=== PATIENT | female | born 1995 | race Caucasian/White ===

== ENCOUNTER 2019-10-05 19:28 | Emergency (ER) | payer OTHER, MEDICAID ==
[~2019-10-05] VITALS: Ht 162.6 cm; Wt 59.0 kg
[2019-10-05 19:50] LABS: URINE BILIRUBIN NEGATIVE (Negative); URINE BLOOD 3+ (Negative); URINE CLARITY CLEAR; URINE COLOR YELLOW; URINE GLUCOSE-RANDOM NEGATIVE (Negative); URINE KETONES NEGATIVE (Negative); URINE LEUKOCYTES-REFLEX NEGATIVE (Negative); URINE NITRITE-REFLEX NEGATIVE (Negative); URINE PROTEIN NEGATIVE (Negative); URINE SPECIFIC GRAVITY >= 1.030 (1.005-1.030); URINE UROBILINOGEN 0.2 E.U./dl (0.2-1.0)
[2019-10-05 19:57] LABS: ABSOLUTE BASOPHILS 0.1 thou/uL (0.0-0.2); ABSOLUTE EOSINOPHILS 0.2 thou/uL (0.0-0.7); ABSOLUTE LYMPHOCYTES 2.4 thou/uL (0.8-5.3); ABSOLUTE MONOCYTES 0.4 thou/uL (0.0-1.2); ABSOLUTE NEUTROPHILS 3.2 thou/uL (1.6-8.1); BASOPHILS 0.9 %; HEMATOCRIT 39.8 % (37.0-47.0); HEMOGLOBIN 13.7 gm/dL (12.0-15.0); LYMPHOCYTES 37.9 %; MCH 31.1 pg (26.0-34.0); MCHC 34.3 g/dL (28.0-37.0); MCV 90.6 fL (80.0-100.0); MONOCYTES 6.5 %; MPV 9.2 fl. (7.2-11.1); NUCLEATED RBCS 0 /100WBC; PLATELET COUNT* 319 thou/uL (150-400); POLYS 51.7 %; RDW-CV 13.3 % (10.5-14.5); WBC 6.2 thou/uL (4.0-11.0)
[2019-10-05 19:58] LABS: SQUAMOUS >10 Many /LPF (0-3)
[2019-10-05 19:59] LABS: BACTERIA-REFLEX 1-9 Few /HPF (None Seen); URINE RBC 3-10 Few /HPF (0-2); URINE WBC-REFLEX 0-5 Rare /HPF (0-5)
[2019-10-05 20:00] LABS: CASTS None Seen /LPF (None Seen); CRYSTALS None Seen /LPF (None Seen); MUCUS 0-3 Light strn/LPF (None Seen)
[2019-10-05 20:43] VITALS: BP 130/80
== END 2019-10-05 20:44 | disposition home or self-care (01) ==
LOC: M.ERS 19:28
PROVIDERS: Nurse Practitioner Family
DX: N93.9 Abnormal uterine and vaginal bleeding, unspecified (principal); F17.210 Nicotine dependence, cigarettes, uncomplicated

== ENCOUNTER 2019-10-10 13:00 | Emergency (ER) | payer OTHER, MEDICAID ==
[~2019-10-10] VITALS: Ht 162.6 cm; Wt 61.2 kg
[2019-10-10 13:15] VITALS: BP 150/91
[2019-10-10] MEDS ORDERED: AMOXICILLIN500 M1 PO (13:58)
== END 2019-10-10 14:06 | disposition home or self-care (01) ==
LOC: M.ERS 13:00
DX: J02.9 Acute pharyngitis, unspecified (principal)

== ENCOUNTER 2020-02-15 23:53 | Emergency (ER) | payer OTHER, MEDICAID ==
[~2020-02-15] VITALS: Ht 162.6 cm; Wt 63.5 kg
[~2020-02-15 23:53] MED LIST: AMOXICILLIN500 M1 PO
[2020-02-16 00:34] LABS: INFLUENZA A ANTIGEN Negative (Negative); INFLUENZA B ANTIGEN Negative (Negative)
[2020-02-16] MEDS ORDERED: PROAIR HFA8.5 GM INH (01:11)
[2020-02-16] MEDS ORDERED: AEROCHAMBER MV1 EACH INH (01:11)
[2020-02-16 01:39] VITALS: BP 148/96
== END 2020-02-16 01:39 | disposition home or self-care (01) ==
LOC: M.ERS 23:53
PROVIDERS: Emergency Medicine
DX: J06.9 Acute upper respiratory infection, unspecified (principal)

== ENCOUNTER 2020-03-04 01:36 | Emergency (ER) | payer OTHER, MEDICAID ==
[~2020-03-04] VITALS: Ht 162.6 cm; Wt 63.5 kg
[~2020-03-04 01:36] MED LIST changes: +AEROCHAMBER MV1 EACH INH; +PROAIR HFA8.5 GM INH
[2020-03-04 02:14] VITALS: BP 138/97
== END 2020-03-04 02:16 | disposition home or self-care (01) ==
LOC: M.ERS 01:36
DX: N64.4 Mastodynia (principal); F17.210 Nicotine dependence, cigarettes, uncomplicated

== ENCOUNTER 2020-04-01 00:45 | Emergency (ER) | payer OTHER, MEDICAID ==
[~2020-04-01] VITALS: Ht 162.6 cm; Wt 59.0 kg
[2020-04-01] MEDS ORDERED: IBUPROFEN 600600 M1 PO (00:53)
[2020-04-01] MEDS ORDERED: AUGMENTIN 500-1 EACH PO (00:53)
[2020-04-01] MEDS ORDERED: HYDROCODON-ACE1 EAC7 PO (00:53)
[2020-04-01 01:12] VITALS: BP 132/70
[2020-04-02] MEDS ORDERED: ZOFRAN ODT4 MG PO (04:44)
[2020-04-02] MEDS ORDERED: AUGMENTIN 875-1 EACH PO (04:44)
[2020-04-02] MEDS ORDERED: HYDROCODON-ACE1 EAC7 PO (04:44)
[2020-04-02] MEDS ORDERED: CYCLOBENZAPRINE5 MG PO (05:36)
[2020-04-02] MEDS ORDERED: TORADOL 10 MG T10 MG PO (05:36)
== END 2020-04-01 01:13 | disposition home or self-care (01) ==
LOC: M.ERS 00:45
DX: M27.62 Post-osseointegration biological failure of dental implant (principal); K02.9 Dental caries, unspecified; R59.1 Generalized enlarged lymph nodes

== ENCOUNTER 2020-04-02 04:27 | Emergency (ER) | payer OTHER, MEDICAID ==
[~2020-04-02] VITALS: Ht 165.1 cm; Wt 61.2 kg
[~2020-04-02 04:27] MED LIST changes: +AUGMENTIN 500-1 EACH PO; +HYDROCODON-ACE1 EAC7 PO; +IBUPROFEN 600600 M1 PO
[2020-04-02] MEDS ORDERED: ZOFRAN ODT4 MG PO (04:44)
[2020-04-02] MEDS ORDERED: HYDROCODON-ACE1 EAC7 PO (04:44)
[2020-04-02] MEDS ORDERED: AUGMENTIN 875-1 EACH PO (04:44)
[2020-04-02 05:13] LABS: URINE BILIRUBIN NEGATIVE (Negative); URINE BLOOD 3+ (Negative); URINE COLOR YELLOW; URINE GLUCOSE-RANDOM NEGATIVE (Negative); URINE KETONES NEGATIVE (Negative); URINE LEUKOCYTES-REFLEX NEGATIVE (Negative); URINE NITRITE-REFLEX NEGATIVE (Negative); URINE PROTEIN NEGATIVE (Negative); URINE SPECIFIC GRAVITY >= 1.030 (1.005-1.030); URINE UROBILINOGEN 0.2 E.U./dl (0.2-1.0)
[2020-04-02 05:15] LABS: URINE CLARITY SL HAZY
[2020-04-02 05:21] LABS: BACTERIA-REFLEX 1-9 Few /HPF (None Seen); SQUAMOUS 0-3 Few /LPF (0-3); URINE RBC 3-10 Few /HPF (0-2); URINE WBC-REFLEX 0-5 Rare /HPF (0-5)
[2020-04-02 05:22] LABS: AMP/METHAMP POSITIVE (Negative); BARBITURATES Negative (Negative); BENZODIAZEPINES Negative (Negative); CASTS None Seen /LPF (None Seen); COCAINE Negative (Negative); CRYSTALS None Seen /LPF (None Seen); METHADONE Negative (Negative); MUCUS 4-6 Moderate strn/LPF (None Seen); OPIATES POSITIVE (Negative); PCP Negative (Negative); THC Negative (Negative)
[2020-04-02] MEDS ORDERED: CYCLOBENZAPRINE5 MG PO (05:36)
[2020-04-02] MEDS ORDERED: TORADOL 10 MG T10 MG PO (05:36)
[2020-04-02 05:56] VITALS: BP 128/84
== END 2020-04-02 05:58 | disposition home or self-care (01) ==
LOC: M.ERS 04:27
PROVIDERS: Personal Emergency Response Attendant
DX: M54.5 Low back pain (principal); Z79.899 Other long term (current) drug therapy

== ENCOUNTER 2020-07-09 23:50 | Emergency (ER) | payer OTHER, MEDICAID ==
[~2020-07-09] VITALS: Ht 162.6 cm; Wt 65.8 kg
[~2020-07-09 23:50] MED LIST changes: +AUGMENTIN 875-1 EACH PO; +CYCLOBENZAPRINE5 MG PO; +TORADOL 10 MG T10 MG PO; +ZOFRAN ODT4 MG PO
[2020-07-10 00:17] LABS: URINE BILIRUBIN NEGATIVE (Negative); URINE BLOOD NEGATIVE (Negative); URINE CLARITY CLEAR; URINE COLOR YELLOW; URINE GLUCOSE-RANDOM NEGATIVE (Negative); URINE KETONES NEGATIVE (Negative); URINE LEUKOCYTES-REFLEX NEGATIVE (Negative); URINE NITRITE-REFLEX NEGATIVE (Negative); URINE PROTEIN NEGATIVE (Negative); URINE SPECIFIC GRAVITY >= 1.030 (1.005-1.030); URINE UROBILINOGEN 0.2 E.U./dl (0.2-1.0)
[2020-07-10 00:28] LABS: ABSOLUTE BASOPHILS 0.1 thou/uL (0.0-0.2); ABSOLUTE EOSINOPHILS 0.2 thou/uL (0.0-0.7); ABSOLUTE LYMPHOCYTES 2.8 thou/uL (0.8-5.3); ABSOLUTE MONOCYTES 0.4 thou/uL (0.0-1.2); ABSOLUTE NEUTROPHILS 3.4 thou/uL (1.6-8.1); BASOPHILS 1.1 %; EOSINOPHILS 3.3 %; HEMATOCRIT 38.5 % (37.0-47.0); HEMOGLOBIN 13.3 gm/dL (12.0-15.0); LYMPHOCYTES 40.6 %; MCH 31.7 pg (26.0-34.0); MCHC 34.5 g/dL (28.0-37.0); MONOCYTES 5.2 %; MPV 9.1 fl. (7.2-11.1); NUCLEATED RBCS 0 /100WBC; PLATELET COUNT* 320 thou/uL (150-400); POLYS 49.8 %; RBC 4.19 mil/uL (4.20-5.00); RDW-CV 13.3 % (10.5-14.5); WBC 6.8 thou/uL (4.0-11.0)
[2020-07-10 00:32] LABS: CALCIUM 8.3 mg/dL (8.5-10.1); POTASSIUM 3.7 mmol/L (3.5-5.1)
[2020-07-10 00:37] LABS: TOTAL BILIRUBIN 0.6 mg/dL (<0.1-1.0); TOTAL PROTEIN 7.2 g/dL (6.4-8.2)
[2020-07-10] MEDS ORDERED: FLAGYL500 M1 PO (02:22)
[2020-07-10 02:32] VITALS: BP 149/90
== END 2020-07-10 02:33 | disposition home or self-care (01) ==
LOC: M.ERS 23:50
PROVIDERS: Emergency Medicine
DX: K50.00 Crohn's disease of small intestine without complications (principal); F17.210 Nicotine dependence, cigarettes, uncomplicated

== ENCOUNTER 2020-07-10 23:24 | Emergency (ER) | payer OTHER, MEDICAID ==
[~2020-07-10] VITALS: Ht 162.6 cm; Wt 65.8 kg
[~2020-07-10 23:24] MED LIST changes: +FLAGYL500 M1 PO
[2020-07-11 00:26] LABS: CREATININE 0.8 mg/dL (0.6-1.3); POTASSIUM 3.6 mmol/L (3.5-5.1)
[2020-07-11 01:03] VITALS: BP 137/92
== END 2020-07-11 01:03 | disposition home or self-care (01) ==
LOC: M.ERS 23:24
PROVIDERS: Emergency Medicine Emergency Medical Services
DX: R20.2 Paresthesia of skin (principal); J34.89 Other specified disorders of nose and nasal sinuses

== ENCOUNTER 2020-10-12 13:54 | Emergency (ER) | payer OTHER, MEDICAID ==
[~2020-10-12] VITALS: Ht 162.6 cm; Wt 65.8 kg
[2020-10-12 15:12] VITALS: BP 135/92
== END 2020-10-12 15:13 | disposition home or self-care (01) ==
LOC: M.ERS 13:54
DX: J98.8 Other specified respiratory disorders (principal); Z20.828 Contact with and (suspected) exposure to other viral communicable diseases

== ENCOUNTER 2020-10-24 11:47 | Emergency (ER) | payer OTHER, MEDICAID ==
[~2020-10-24] VITALS: Ht 162.6 cm; Wt 65.8 kg
[2020-10-24 12:29] LABS: URINE BLOOD 3+ (Negative); URINE CLARITY CLEAR; URINE COLOR YELLOW; URINE GLUCOSE-RANDOM TRACE (Negative); URINE KETONES NEGATIVE (Negative); URINE LEUKOCYTES-REFLEX NEGATIVE (Negative); URINE NITRITE-REFLEX NEGATIVE (Negative); URINE PROTEIN 2+ (Negative); URINE SPECIFIC GRAVITY >= 1.030 (1.005-1.030); URINE UROBILINOGEN 0.2 E.U./dl (0.2-1.0)
[2020-10-24 12:41] LABS: ABSOLUTE EOSINOPHILS 0.4 thou/uL (0.0-0.7); ABSOLUTE MONOCYTES 0.5 thou/uL (0.0-1.2); ABSOLUTE NEUTROPHILS 6.5 thou/uL (1.6-8.1); BASOPHILS 0.5 %; EOSINOPHILS 3.8 %; HEMATOCRIT 40.5 % (37.0-47.0); HEMOGLOBIN 13.5 gm/dL (12.0-15.0); LYMPHOCYTES 20.9 %; MCH 30.8 pg (26.0-34.0); MCHC 33.4 g/dL (28.0-37.0); MCV 92.2 fL (80.0-100.0); MONOCYTES 5.2 %; MPV 8.9 fl. (7.2-11.1); NUCLEATED RBCS 0 /100WBC; PLATELET COUNT* 239 thou/uL (150-400); POLYS 69.6 %; RBC 4.39 mil/uL (4.20-5.00); RDW-CV 12.9 % (10.5-14.5); WBC 9.4 thou/uL (4.0-11.0)
[2020-10-24 12:42] LABS: BACTERIA-REFLEX 1-9 Few /HPF (None Seen); CASTS None Seen /LPF (None Seen); CRYSTALS None Seen /LPF (None Seen); ICTOTEST (BILI CONFIRMATORY) Negative (Negative); SQUAMOUS 4-10 Moderate /LPF (0-3); URINE BILIRUBIN 2+ (Negative); URINE RBC 3-10 Few /HPF (0-2); URINE WBC-REFLEX 0-5 Rare /HPF (0-5)
[2020-10-24 12:56] LABS: CALCIUM 7.8 mg/dL (8.5-10.1); CREATININE 0.8 mg/dL (0.6-1.3); POTASSIUM 3.6 mmol/L (3.5-5.1)
[2020-10-24 13:00] LABS: ALBUMIN 3.4 g/dL (3.4-5.0); TOTAL BILIRUBIN 0.9 mg/dL (<0.1-1.0); TOTAL PROTEIN 6.8 g/dL (6.4-8.2)
[2020-10-24 13:59] VITALS: BP 140/68
== END 2020-10-24 13:59 | disposition home or self-care (01) ==
LOC: M.ERS 11:47
PROVIDERS: Physician Assistant
DX: N94.6 Dysmenorrhea, unspecified (principal); R10.32 Left lower quadrant pain

== ENCOUNTER 2020-11-03 18:53 | Emergency (ER) | payer OTHER, MEDICAID ==
[~2020-11-03] VITALS: Ht 162.6 cm; Wt 65.8 kg
[2020-11-03 20:22] LABS: URINE BILIRUBIN NEGATIVE (Negative); URINE BLOOD NEGATIVE (Negative); URINE CLARITY CLEAR; URINE COLOR YELLOW; URINE GLUCOSE-RANDOM NEGATIVE (Negative); URINE KETONES NEGATIVE (Negative); URINE LEUKOCYTES-REFLEX NEGATIVE (Negative); URINE NITRITE-REFLEX NEGATIVE (Negative); URINE PROTEIN NEGATIVE (Negative); URINE UROBILINOGEN 0.2 E.U./dl (0.2-1.0)
[2020-11-03 20:28] LABS: AMP/METHAMP POSITIVE (Negative); BARBITURATES Negative (Negative); BENZODIAZEPINES Negative (Negative); COCAINE Negative (Negative); METHADONE Negative (Negative); OPIATES Negative (Negative); PCP Negative (Negative); THC Negative (Negative)
[2020-11-03 20:43] LABS: HEMATOCRIT 41.9 % (37.0-47.0); MCH 30.8 pg (26.0-34.0); MCHC 33.5 g/dL (28.0-37.0); MCV 91.9 fL (80.0-100.0); MPV 8.8 fl. (7.2-11.1); RBC 4.56 mil/uL (4.20-5.00); RDW-CV 12.7 % (10.5-14.5); WBC 6.7 thou/uL (4.0-11.0)
[2020-11-03 21:03] LABS: CALCIUM 8.9 mg/dL (8.5-10.1); CREATININE 0.8 mg/dL (0.6-1.3)
[2020-11-03 21:07] LABS: ALBUMIN 3.9 g/dL (3.4-5.0); TOTAL BILIRUBIN 0.7 mg/dL (<0.1-1.0); TOTAL PROTEIN 7.4 g/dL (6.4-8.2)
[2020-11-03 21:50] VITALS: BP 132/68
== END 2020-11-03 21:50 | disposition home or self-care (01) ==
LOC: M.ERS 18:53
PROVIDERS: Personal Emergency Response Attendant
DX: R23.2 Flushing (principal); F15.10 Other stimulant abuse, uncomplicated

== ENCOUNTER 2021-07-23 02:32 | Emergency (ER) | payer OTHER, MEDICAID ==
[~2021-07-23] VITALS: Ht 162.6 cm; Wt 63.5 kg
[2021-07-23 02:57] LABS: URINE BILIRUBIN NEGATIVE (Negative); URINE BLOOD 3+ (Negative); URINE COLOR YELLOW; URINE GLUCOSE-RANDOM NEGATIVE (Negative); URINE KETONES NEGATIVE (Negative); URINE LEUKOCYTES-REFLEX NEGATIVE (Negative); URINE NITRITE-REFLEX NEGATIVE (Negative); URINE PROTEIN NEGATIVE (Negative); URINE SPECIFIC GRAVITY >= 1.030 (1.005-1.030)
[2021-07-23 02:59] LABS: URINE CLARITY SL CLOUDY
[2021-07-23 03:11] LABS: BACTERIA-REFLEX >30 Many /HPF (None Seen); CASTS None Seen /LPF (None Seen); CRYSTALS None Seen /LPF (None Seen); MUCUS 4-6 Moderate strn/LPF (None Seen); SQUAMOUS 4-10 Moderate /LPF (0-3); TRANSITIONAL EPITHEL CELL 0-3 Few /LPF (None Seen); URINE RBC 3-10 Few /HPF (0-2); URINE WBC-REFLEX None Seen /HPF (0-5)
[2021-07-23 03:15] LABS: ABSOLUTE BASOPHILS 0.1 thou/uL (0.0-0.2); ABSOLUTE EOSINOPHILS 0.2 thou/uL (0.0-0.7); ABSOLUTE MONOCYTES 0.4 thou/uL (0.0-1.2); BASOPHILS 1.3 %; EOSINOPHILS 3.8 %; HEMATOCRIT 37.8 % (37.0-47.0); HEMOGLOBIN 12.7 gm/dL (12.0-15.0); LYMPHOCYTES 35.1 %; MCH 30.7 pg (26.0-34.0); MCHC 33.6 g/dL (28.0-37.0); MCV 91.5 fL (80.0-100.0); MONOCYTES 6.6 %; MPV 8.5 fl. (7.2-11.1); NUCLEATED RBCS 0 /100WBC; PLATELET COUNT* 257 thou/uL (150-400); POLYS 53.2 %; RBC 4.13 mil/uL (4.20-5.00); RDW-CV 12.7 % (10.5-14.5); WBC 5.7 thou/uL (4.0-11.0)
[2021-07-23 03:28] LABS: CALCIUM 8.5 mg/dL (8.5-10.1); CREATININE 0.7 mg/dL (0.6-1.3); POTASSIUM 3.7 mmol/L (3.5-5.1)
[2021-07-23 08:52] VITALS: BP 140/85
== END 2021-07-23 08:52 | disposition home or self-care (01) ==
LOC: M.ERS 02:32
PROVIDERS: Emergency Medicine
DX: O20.0 Threatened abortion (principal); Z3A.01 Less than 8 weeks gestation of pregnancy; Z91.09 Other allergy status, other than to drugs and biological substances

== ENCOUNTER 2021-10-05 18:27 | Emergency (ER) | payer OTHER, MEDICAID ==
[~2021-10-05] VITALS: Ht 162.6 cm; Wt 70.3 kg
[2021-10-05] MEDS ORDERED: AMOXICILLIN 50500 MG PO (19:22)
[2021-10-05 19:51] LABS: URINE BILIRUBIN NEGATIVE (Negative); URINE BLOOD NEGATIVE (Negative); URINE CLARITY CLEAR; URINE COLOR YELLOW; URINE GLUCOSE-RANDOM NEGATIVE (Negative); URINE KETONES NEGATIVE (Negative); URINE LEUKOCYTES-REFLEX NEGATIVE (Negative); URINE NITRITE-REFLEX NEGATIVE (Negative); URINE PROTEIN NEGATIVE (Negative); URINE SPECIFIC GRAVITY 1.025 (1.005-1.030); URINE UROBILINOGEN 0.2 E.U./dl (0.2-1.0)
[2021-10-05 20:23] LABS: AMP/METHAMP Negative (Negative); BARBITURATES Negative (Negative); BENZODIAZEPINES Negative (Negative); COCAINE Negative (Negative); METHADONE Negative (Negative); OPIATES Negative (Negative); PCP Negative (Negative); THC Negative (Negative)
[2021-10-05 21:43] VITALS: BP 122/67
--- NOTE | 2021-10-06 08:50 | EKG ---
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 : 1995 Requested By: Arabella Matos Order Number: [id number] MD: Russ Pierre Measurements Intervals [place] Rate: 104 P: 14 IN: 136 QRS: 55 QRSD: 85 T: 21 QT: 332 QTc: 437 Interpretive Statements Sinus tachycardia Abnormal Q suggests anterior infarct Baseline wander in lead(s) I,III,aVR,aVL No previous ECG available for comparison Electronically Signed On 10-06-2021 8:49:57 DEMENTIA PROGRAM DIRECTOR by Russ Pierre [email or web address] <ELECTRONICALLY SIGNED> By: Russ Pierre MD, [facility] 10/06/21 0849 1835 1835 Russ Pierre MD, [facility] /EPI
== END 2021-10-05 21:43 | disposition home or self-care (01) ==
LOC: M.ERS 18:27
PROVIDERS: Emergency Medicine; Physician Assistant
DX: O26.892 Other specified pregnancy related conditions, second trimester (principal); R00.2 Palpitations; Z3A.16 16 weeks gestation of pregnancy; Z79.899 Other long term (current) drug therapy

== ENCOUNTER 2021-11-23 13:04 | Emergency (ER) | payer OTHER, MEDICAID ==
[~2021-11-23] VITALS: Ht 162.6 cm; Wt 70.3 kg
[~2021-11-23 13:04] MED LIST changes: +AMOXICILLIN 50500 MG PO
[2021-11-23 13:46] LABS: INFLUENZA A ANTIGEN Negative (Negative); INFLUENZA B ANTIGEN Negative (Negative)
[2021-11-23 14:33] LABS: URINE BILIRUBIN NEGATIVE (Negative); URINE BLOOD NEGATIVE (Negative); URINE CLARITY CLEAR; URINE COLOR YELLOW; URINE GLUCOSE-RANDOM NEGATIVE (Negative); URINE KETONES NEGATIVE (Negative); URINE LEUKOCYTES-REFLEX NEGATIVE (Negative); URINE NITRITE-REFLEX NEGATIVE (Negative); URINE PROTEIN NEGATIVE (Negative); URINE SPECIFIC GRAVITY 1.025 (1.005-1.030); URINE UROBILINOGEN 0.2 E.U./dl (0.2-1.0)
[2021-11-23 14:39] VITALS: BP 135/65
== END 2021-11-23 14:39 | disposition home or self-care (01) ==
LOC: M.ERS 13:04
PROVIDERS: Emergency Medicine Emergency Medical Services; Nurse Practitioner Family
DX: U07.1 COVID-19 (principal)

== ENCOUNTER 2021-11-26 15:31 | Emergency (ER) | payer OTHER, MEDICAID ==
[~2021-11-26] VITALS: Ht 162.6 cm; Wt 70.3 kg
[2021-11-26 16:06] VITALS: BP 117/80
== END 2021-11-26 16:11 | disposition left against medical advice (07) ==
LOC: M.ERS 15:31
DX: U07.1 COVID-19 (principal); R07.89 Other chest pain